=== PATIENT | male | born 1960 | race Caucasian/White ===

== ENCOUNTER 2019-06-19 13:13 | Emergency (ER) | payer OTHER, SELFPAY ==
--- NOTE | ~2019-06-19 | XR_ITS ---
EXAMINATION: XR chest 2V DATE: 06/19/2019 13:44 INDICATION: Cough and fever TECHNIQUE: PA and lateral views of the chest are obtained. COMPARISON: 08/21/2009 FINDINGS: The lungs are free of acute opacities. There is no pleural effusion or pneumothorax. The ca rdiomediastinal silhouette is normal. There is mild thoracic spondylosis. IMPRESSION: 1. No acute cardiopulmonary abnormality. Reviewed, dictated and finalized at location A. ITION NOTCHER
--- NOTE | 2019-06-19 13:25 | ED.GENADULT ---
HPI - General Adult General Chief complaint: Upper Respiratory Infection Stated complaint: COLD Time Seen by Provider: 06/19/19 13:26 Source: patient and RN notes reviewed Mode of arrival: ambulatory Limitations: no limitations History of Present Illness HPI narrative: Pt is a 59 y/o male who is a nonsmoker/nondrinker that presents to the with c/o a productive cough with clear phlegm that started Sunday (3 days ago). Pt states that he had a cold and had augmentin Rx on 06/05/19 by his PCP. He notes that he did not complete his Abx but he was feeling better after taking them. After he started feeling better he had to travel via train for a conference and when he got back home his Sx started all over again. Pt reports that he had a fever of 99.9F and he has been more congested and is wheezing. He also reports lower back pain when he takes a deep breath. He denies precordial chest pain, sputum changes, SOB, calf pain/edema, nor ever using an inhaler or nebulizer in the past. MD complaint: Cough Onset (ago): day(s) (3) Severity: similar to prior episodes Associated symptoms: other (fever, congestion, wheezing, lower back pain) Related Data Home Medications Medication Instructions Recorded Confirmed atorvastatin 40 mg tablet 40 mg PO DAILY 05/29/19 06/19/19 losartan 50 mg tablet 50 mg PO DAILY 05/29/19 06/19/19 metoprolol succinate 100 mg 100 mg PO DAILY 05/29/19 06/19/19 tablet,extended release 24 hr Allergies Allergy/AdvReac Type Severity Reaction Status Date / Time No Known Allergies Allergy Verified 06/19/19 13:36 Review of Systems Review of Systems: Narrative: General/Constitutional: No weight loss. Reports fever 99.9F Eyes: N0: Redness,discharge Ears/Nose/Throat: No: Epistaxis,ear discharge. Reports congestion Respiratory: Denies: Hemoptysis. Reports cough with clear phlegm and wheezing Gastrointestinal: No Vomiting, Bleeding-rectal Skin: No Lumps, eruption Neurologic: No Focal Weakness,Sz Musculoskeletal: Reports lower back pain Hematologic: Denies: Petechiae/Purpura Psychiatric: No: Suicidal ideation All Other Systems: Reviewed and Negative [facility] Past Medical History Medical History Hyperlipidemia Hypertension Insomnia Nasal polyp 2012 Surgical History Surgical History H/O arthroscopic knee surgery Left 2003, 2017 Family History Family History (Updated 05/27/19 @ 12:46 by Alma Delia Stacy, [facility]) Mother Patient's mother is in good health Sibling Patient's sister is in good health Patient's brother is in good health Father MVA (motor vehicle accident) Social History Social History Smoking status: Never smoker Alcohol intake: current Comments At time of signature, agree with nursing past medical, surgical, social and family history. There is no relevant family history pertinent to the presenting complaint Exam Narrative: Exam Narrative: General Appearance: Well appearing, Well nourished EYE: PERRLA, Conjunctiva clear Ears: Auditory canal normal, TM normal Nose: No Rhinorrhea, No Mucousal erythema Mouth/Throat: MM moist, Uvula midline, No Pharyngeal erythema Neck: Supple, No adenopathy Respiratory: No respiratory distress, Breath sounds equal, Scattered wheezing EDWIGE Cardiovascular: RRR, No JVD Musculoskeletal: Non tender, Normal strength Skin: Warm, Dry Neurological: A&O x3, CN II-XII intact Psychiatric: Normal mood, Normal affect Course Vital Signs Vital signs: Vital Signs Temperature 97.7 F 06/19/19 13:26 Pulse Rate 76 06/19/19 13:26 Respiratory Rate 06/19/19 13:26 Blood Pressure 134/83 06/19/19 13:26 Pulse Oximetry 99 06/19/19 13:26 Temperature 97.7 F 06/19/19 13:26 Pulse Rate 76 06/19/19 13:26 Respiratory Rate 06/19/19 13:26 Blood Pressure 134/83 06/19/19 13:26 Puls
[2019-06-19 13:26] VITALS: BP 134/83; PULSE 76; RESP 20; TEMP 36.5; O2SAT 99
== END 2019-06-19 14:25 | disposition home or self-care (01) ==
PROVIDERS: Emergency Provider Emergency Medicine; PCP Internal Medicine
DX: J98.01 Acute bronchospasm (principal); E78.5 Hyperlipidemia, unspecified; I10 Essential (primary) hypertension
CPT/HCPCS: 71046; 87804; 99213; G0463

== ENCOUNTER 2020-02-10 00:39 | Outpatient (CLI) | payer OTHER, SELFPAY ==
[2020-02-10 17:26] LABS: SARS-CoV-2 RNA PCR Negative
== END 2020-02-10 00:40 | disposition home or self-care (01) ==
LOC: ANHCOVIDDT 00:39
PROVIDERS: PCP Internal Medicine; Visit Provider Internal Medicine Gastroenterology
DX: Z01.812 Encounter for preprocedural laboratory examination (principal); Z20.828 Contact with and (suspected) exposure to other viral communicable diseases
CPT/HCPCS: 87635; C9803; U0003

== ENCOUNTER 2020-02-12 00:38 | Day surgery (SDC) | payer OTHER, SELFPAY ==
[2020-02-05 14:47] VITALS: BMI 27.1
--- NOTE | 2020-02-11 13:02 | WPDANESEPPF ---
Anes - Initial Pre Proc Eval Procedure: Operation Date: 02/12/20 09:00 Proposed Procedures p Screening Colonoscopy - Vamsi Vogt MD Date/Time: 02/11/20 13:02 Surgeon: Vamsi Vogt MD Pre Op Diagnosis: screening, hx colon polyps Patient Data Age: 59 Gender: M Height: 1.83 m Weight: 91 kg Allergies Allergy/AdvReac Type Severity Reaction Status Date / Time No Known Allergies Allergy Verified 02/12/20 08:03 Home Medications Medication Instructions Recorded Confirmed Type atorvastatin 40 mg tablet 40 mg PO HS 05/29/19 02/05/20 History losartan 50 mg tablet 50 mg PO DAILY 05/29/19 02/12/20 History metoprolol succinate 100 mg 100 mg PO DAILY 05/29/19 02/12/20 History tablet,extended release 24 hr temazepam 15 mg capsule 15 mg PO DAILY PRN #90 cap 05/29/19 02/05/20 Rx toxlmgsliszu-jnp-zezi-FA-vit K 1 tablet PO DAILY 02/05/20 02/05/20 History [Adults Multivitamin] omega 9-cve-qjf-fish oil [Fish Oil] 1 cap PO DAILY 02/05/20 02/05/20 History Patient hx anesthesia problems: none Family hx anesthesia problems: none PMFSH Past Medical History Medical History (Updated 02/11/20 @ 13:02 by Rojelio Hernandez DO) Hyperlipidemia Hypertension Insomnia Nasal polyp 2012 MARIS (obstructive sleep apnea) CPAP Osteoarthritis Surgical History Surgical History H/O arthroscopic knee surgery Left 2003, 2017 Family History Family History (Updated 05/27/19 @ 12:46 by Alma Delia Stacy [facility]) Mother Patient's mother is in good health Sibling Patient's sister is in good health Patient's brother is in good health Father MVA (motor vehicle accident) Social History Social History Smoking status: Never smoker Alcohol intake: current Drinks per week: 7 Alcohol use details: DRINKS Substance use: never Substance use type: does not use Living arrangements: with family Spiritual care concerns: No Anes - Eval Final PreProcedure Day of Procedure 02/11/20 13:02 Patient weight: overweight Heart: regular rate and rhythm Lungs: clear to auscultation and normal air movement Airway: Mallampati scale class II Neurological: alert and oriented Last oral intake: >/= 8 hours ASA classification: III Emergent: no Anesthetic plan: proceed Anesthesia type and monitoring: general GIVS and standard monitoring Informed Consent: The patient's anesthetic plan and its attendant risks and benefits were discussed with the patient/family/POA. Questions were solicited and answers provided to the satisfaction of the patient/family/POA.
[2020-02-12 08:05] VITALS: BP 136/85; PULSE 61; RESP 18; TEMP 36.4; O2SAT 97; BMI 59.5
[2020-02-12] MEDS: LACTATED RINGERS 1,000 ML 150 ML IV CONT (08:20)
--- NOTE | 2020-02-12 08:37 | P.HP_ITS ---
History of Present Illness History of Present Illness Consent: Risks, benefits, and alternatives have been discussed and questions answered. Patient agrees to proceed with procedure. Chief complaint: screening, hx colon polyps Narrative: Kash Dunn is a 59 year old W male referred for screening colonoscopy secondary to history of colonic polyps. Patient's initial colonoscopy in 2009 adenomatous polyp was removed. Last colonoscopy 5 years ago no polyps were visualized. Patient's brother has a history of malignant polyp. Patient is asymptomatic. [facility]LY [facility], [facility] Past Medical History Medical History Hyperlipidemia Hypertension Insomnia Nasal polyp 2012 MARIS (obstructive sleep apnea) CPAP Osteoarthritis Surgical History Surgical History H/O arthroscopic knee surgery Left 2003, 2017 Family History Family History Mother Patient's mother is in good health Sibling Patient's sister is in good health Patient's brother is in good health Father MVA (motor vehicle accident) Social History Social History Smoking status: Never smoker Alcohol intake: current Drinks per week: 7 Alcohol use details: DRINKS Substance use: never Substance use type: does not use Living arrangements: with family Spiritual care concerns: No Meds Home Medications and Allergies Home Medications Medication Instructions Recorded Confirmed Type atorvastatin 40 mg tablet 40 mg PO HS 05/29/19 02/05/20 History losartan 50 mg tablet 50 mg PO DAILY 05/29/19 02/12/20 History metoprolol succinate 100 mg 100 mg PO DAILY 05/29/19 02/12/20 History tablet,extended release 24 hr temazepam 15 mg capsule 15 mg PO DAILY PRN #90 cap 05/29/19 02/12/20 Rx weuwrfxknpio-ceg-npki-FA-vit K 1 tablet PO DAILY 02/05/20 02/05/20 History [Adults Multivitamin] omega 5-ttk-dib-fish oil [Fish Oil] 1 cap PO DAILY 02/05/20 02/05/20 History Allergies Allergy/AdvReac Type Severity Reaction Status Date / Time No Known Allergies Allergy Verified 02/12/20 08:03 Vital Signs Vital Signs - 24 hr 02/12/20 08:05 Temperature 36.4 C L Pulse Rate 61 Respiratory Rate 18 Blood Pressure 136/85 Pulse Oximetry 97 Exam Const: Orientation/consciousness: patient oriented x3 Resp: Auscultation: clear to auscultation bilaterally Cardio: Rate: regular rate Rhythm: regular rhythm Heart sounds: no murmurs GI: GI Palp: Yes Soft to palpation, No Tenderness to palpation present (GI), Yes No hepatosplenomegaly present and No Palpable mass present Auscultation: normal bowel sounds Neuro: General: patient oriented x3 and no focal motor deficits Extrem: General: no pedal edema Assessment and Plan Additional Plan Screening colonoscopy secondary history of colonic polyps
[2020-02-12 09:37] VITALS: BP 99/67; PULSE 64; RESP 24; O2SAT 98
[2020-02-12 09:43] VITALS: BP 122/83; PULSE 80; RESP 27; O2SAT 99
[2020-02-12 09:53] VITALS: BP 124/87; PULSE 80; RESP 18; O2SAT 100
--- NOTE | 2020-02-12 09:59 | SUR.PHASEII ---
pt to post op area at 0933 and first set of vitals obtained at that time
== END 2020-02-12 10:04 | disposition home or self-care (01) ==
PROVIDERS: PCP Internal Medicine; Visit Provider Internal Medicine Gastroenterology
PROC: 0DJD8ZZ Inspection of Lower Intestinal Tract, Via Natural or Artificial Opening Endoscopic (ICD-10-PCS; CPT 45378; principal; 2020-02-12 09:00)
DX: Z12.11 Encounter for screening for malignant neoplasm of colon (principal); D12.3 Benign neoplasm of transverse colon; K57.30 Diverticulosis of large intestine without perforation or abscess without bleeding; I10 Essential (primary) hypertension; E78.5 Hyperlipidemia, unspecified; G47.33 Obstructive sleep apnea (adult) (pediatric)
CPT/HCPCS: 45385; 88305; J2704; J7120

== ENCOUNTER 2022-12-31 09:20 | Emergency (ER) | payer OTHER, SELFPAY ==
[2022-12-31 09:30] VITALS: BP 120/81; PULSE 80; RESP 16; TEMP 36.4; O2SAT 99
--- NOTE | 2022-12-31 10:01 | ED.GENADULT ---
HPI - General Adult General Chief complaint: Extremity Problem,Nontraumatic Stated complaint: Injured right foot Time Seen by Provider: 12/31/22 10:01 Source: patient Mode of arrival: ambulatory Limitations: no limitations History of Present Illness HPI narrative: 62-year-old male presented for complaint of puncture wound to the bottom of the right foot after stepping on a irais nail 2 days ago. The nail went through his shoe. He was in [place] at the time. Applied iodine to the site. Bleeding was controlled. Denies significant pain, redness, numbness, tingling or weakness of the foot. Has not had tetanus shot since childhood. Related Data Home Medications Medication Instructions Recorded Confirmed atorvastatin 40 mg tablet 40 mg PO HS 05/29/19 12/31/22 metoprolol succinate 100 mg 100 mg PO DAILY 05/29/19 12/31/22 tablet,extended release 24 hr multivit with minerals-iron 18 1 tablet PO DAILY 02/05/20 12/31/22 mg-folic ac 400 mcg-vit K 25 mcg tablet (Adults Multivitamin) omega 7-uiw-oax-fish oil 1,000 mg 1 cap PO DAILY 02/05/20 12/31/22 (120 mg-180 mg) capsule (Fish Oil) amlodipine 10 mg tablet 10 mg PO DAILY 12/31/22 12/31/22 hydrochlorothiazide 12.5 mg tablet 12.5 mg PO DAILY 12/31/22 12/31/22 losartan 100 mg tablet 100 mg PO DAILY 12/31/22 12/31/22 Allergies Allergy/AdvReac Type Severity Reaction Status Date / Time No Known Allergies Allergy Verified 12/31/22 09:25 Review of Systems Review of Systems: CONSTITUTIONAL: Denies body aches, fever, chills EYES: Denies visual changes ENT: Denies rhinorrhea, congestion CARDIOVASCULAR: Denies chest pain, palpitations, or edema. RESPIRATORY: Denies cough or dyspnea. GASTROINTESTINAL: Denies abdominal pain, nausea, vomiting, or diarrhea. SKIN: Denies rash, itching Reports puncture wound to foot MUSCULOSKELETAL: Denies back pain, joint pain, or myalgia. NEUROLOGIC: Denies headache, numbness, tingling, or weakness. All systems reviewed & are unremarkable except as noted in HPI and below PMFSH Past Medical History Medical History (Updated 12/31/22 @ 10:28 by Nessaalexia Cantu APRN) Hyperlipidemia Hypertension Insomnia Nasal polyp 2012 MARIS (obstructive sleep apnea) CPAP Osteoarthritis Surgical History Surgical History H/O arthroscopic knee surgery Left 2017 Family History Family History Mother Patient's mother is in good health Sibling Patient's sister is in good health Patient's brother is in good health Father MVA (motor vehicle accident) Social History Social History Smoking status: Never smoker Alcohol intake: current Drinks per week: 7 Alcohol use details: DRINKS Substance use: never Substance use type: does not use Living arrangements: with family Spiritual care concerns: No Comments At time of signature, I have reviewed and agree with nursing past medical, surgical, social and family history unless otherwise noted. Please see nursing chart for further information. There is no relevant family history pertinent to the presenting complaint Exam Narrative: GENERAL: Well-appearing, and in no acute distress. HEAD: Normocephalic, atraumatic. EYES: PERRLA, conjunctivae clear NECK: Supple. CHEST: Speaks in full sentences. No respiratory distress. HEART: Regular rate and rhythm. Normal and equal peripheral pulses. EXTREMITIES: Right foot plantar surface with puncture site between 1st and 2nd MTP joints c/w reported injury; no FB; no induration, fluctuance, or drainage. Mild tenderness with palpation. Right foot has normal strength and sensation, normal range of motion. No swelling or ecchymosis, No obvious deformity; alignment normal, pulse palpable and equal bilaterally, skin warm, dry, pink. Capillary refill less than 3 seconds. SKIN:
[2022-12-31] MEDS: TETANUS,DIPHTHERIA,AC PERTUSSIS ADULT (0.5 ML) BOOSTRIX IM (10:13)
== END 2022-12-31 10:15 | disposition home or self-care (01) ==
PROVIDERS: Emergency Provider Nurse Practitioner Family
DX: S91.331A Puncture wound without foreign body, right foot, initial encounter (principal); E78.5 Hyperlipidemia, unspecified; I10 Essential (primary) hypertension; Z23 Encounter for immunization; W45.0XXA Nail entering through skin, initial encounter
CPT/HCPCS: 90471; 90715; 99213; G0463

== ENCOUNTER 2023-12-13 19:37 | Emergency (ER) | payer OTHER, SELFPAY ==
[2023-12-13 19:44] VITALS: BP 117/71; PULSE 91; RESP 16; TEMP 36.6; O2SAT 100
== END 2023-12-13 21:53 | disposition left against medical advice (07) ==
LOC: ANHED 20:25
DX: T63.443A Toxic effect of venom of bees, assault, initial encounter (principal)
CPT/HCPCS: 99199

== ENCOUNTER 2025-02-26 00:51 | Day surgery (SDC) | payer MEDICARE, SELFPAY ==
[2025-02-12 15:53] VITALS: BMI 26.3
--- OUTSIDE RECORDS SUMMARY | 2025-02-26 00:54 | XMS_ITS | Clinical Summary ---
Author Organization [facility] Address [address] [place] [address] Care Team Providers Care Tool Crib Manager Name Role Phone Anderson Patrick MD Unavailable [phone] Kirstin Quesada MD Primary Care Provider [phone] Source Comments [facility],non-owned Affiliates and Associated Physician Practices is amultiple site organization consisting of ambulatory clinics and hospital sitesin [place], [place], [place] and [place]. This disclosure is being madepursuant to the Care Everywhere program and may not contain all information available regarding this patient. Last updated 18.[facility] Allergies Active Allergy Reactions Criticality Noted Date Comments Lisinopril Cough 01/20/2019 Medications * Be aware that medications may not be up to date on this document. Alwaysverify current medications with the patient. multivitamin daily (THERAGRAN) tablet Take 1 (one) tablet by mouth daily with food Hold 5 days pre op Active Madison-3 Fatty Acids (OMEGA-3 FISH OIL) 1200 MG Take 1,200 mg by mouth once daily Hold 5 days pre op Active metoprolol succinate XL 24hr (TOPROL XL) 100 MG tablet TAKE 1 TABLET ONCE DAILY 90 tablet 4 0 Active Additional Information Patient taking differently: 100 mg Oral DAILY, Ok to take day of surgery, Reported on 02/13/2023 atorvastatin (LIPITOR) 40 MG tablet TAKE 1 TABLET DAILY 90 tablet 3 0 Active Additional Information Patient taking differently: 40 mg Oral AT BEDTIME, Reported on 02/13/2023 losartan (COZAAR) 50 MG tablet TAKE 1 TABLET ONCE DAILY. THIS TAKES THE PLACE OF LISINOPRIL. 90 tablet 4 0 Active Additional Information Patient taking differently: 50 mg Oral DAILY, Hold day of surgery, Reported on 02/13/2023 amLODIPine (Norvasc) 10 MG tablet Take 1 (one) tablet by mouth once daily Ok to take day of surgery 3 Active Active Problems Patient Care Coordination No te Formatting of this note migh t be different from the original. Computer Designer - Dr. Anderson Patrick Problem Noted Date Diagnosed Date Chest pain 12/11/2014 Overview (12/11/2014): 08/04 ruled out ME -> EKG: SR, minimal nonspecific ST abnormality 08/04 stress nuclear 10:00--88% maximal heart rate, small mild inferolateral attenuation, no ischemia, EF 55% Pure hypercholesterolemia 12/11/2014 Overview (01/22/2020): 01/14 Cholesterol 162 HDL 57 LDL 86 triglyceride 93, AST 20 ALT 20 glucose 100 01/13 Cholesterol 163 HDL 52 LDL 95 triglyceride 80, normal CMP except glucose 104 01/12 Cholesterol 121 HDL 50 LDL 56 triglyceride 74, normal CMP 01/11 Cholesterol 161 HDL 57 LDL 80 triglyceride 118, virtually normal CMP 12/10 Cholesterol 137 HDL 58 LDL 66 triglyceride 65, normal CMP except glucose 103 12/09 Cholesterol 161 HDL 60 LDL 78 triglyceride 115, normal CMP except glucose 100 12/08 Cholesterol 168 HDL 46 LDL 95 triglyceride 136, normal LFTs glucose 104 12/07 Cholesterol 145 HDL 48 LDL 75 triglyceride 108, normal LFTs glucose 107 12/06 Cholesterol 147 HDL 54 LDL 74 triglyceride 95, normal LFTs 05/07 cholesterol 180 HDL 47 LDL 109 triglyceride 118, normal CMP 10/05 cholesterol 149 HDL 47 LDL 83 triglyceride 95, normal CK/LFTs. 10/04 cholesterol 135 HDL 41 LDL 71 triglyceride 113, normal CK/LFTs. 08/04 cholesterol 216 HDL 34 LDL 159 triglyceride 113 Essential hypertension 12/11/2014 Immunizations Immunization Administration Dates Next Due COVID MODERNA BIVALENT 12Y+ 50MCG/0.5ML 02/06/20 22 MODERNA SARS-COV-2 COVID-19 VACCINE 0.25ML 08/26 Family History Relation Name Status Comments Father (Age 35) Car accide nt Mother Alive (Age 88) doing fine Other Half brother wi th coronary disease Paternal Grandfather (Age 75) pa ternal grandfather who had coronary disease Paternal Uncle (Age 59) paternal uncle who of ME at 59 Social History Tobacco Use Types Packs/Day Years Used Date Smoking Tobacco: Never Smokeless Tobacco: Never Tobacco Cessation:Counseling Given: Not Answered Alcohol Use Standard Drinks/Week Comments Yes 5 (1 standard drink = 0.6 oz pur e alcohol) Sex and Gender Information Value Date Recorded Sex Assigned at Not on file Legal 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 Gender Identity Not on file Sexual Orientation Not on file Occupation Industry 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 Start Date Job 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 [employer] Not on file Not on file Not on file Last Filed Vital Signs Vital Sign Reading Time Taken Comments Blood Pressure 140/89 02/27/2023 10:38 AM CDT Pulse 78 02/27/2023 10:20 AM CDT Temperature 36.2 C (97.2 F) 02/27/2023 11:30 AM CDT Respiratory Rate 14 02/27/2023 10:38 AM CDT Oxygen Saturation 94% 02/27/2023 10:38 AM CDT Inhaled Oxygen Concentration - - Weight 86.2 kg (190 lb) 02/27/2023 6:20 AM CDT Height 182.9 cm (6') 02/27/2023 6:20 AM CDT Body Mass Index 25.77 02/27/2023 6:20 AM CDT Plan of Treatment Health Maintenance Due Date Last Done Comments COLOGUARD (AGES 45-75) - COLON CA SCREENING 1959 COLON MONITORING 1959 COLONOSCOPY - COLON CA SCREENING 1959 CT COLONOGRAPHY - COLON CA SCREENING 1959 Colorectal Cancer Screening 1959 FIT - COLON CA SCREENING 1959 FLEX SIG - COLON CA SCREENING 1959 HIV SCREENING 1974 HEPATITIS C SCREENING 04/19/1977 DTAP/TDAP/TD VACCINES (1 - Tdap) 1978 PNEUMOCOCCAL VACCINE 50+ (1 of 1 - PCV) 2009 ZOSTER VACCINE (1 of 2) 2009 SCREENING FOR DIABETES 01/22/2024 1, 01/20/2020, 01/15/2019, Additional history exists DEPRESSION SCREENING 05/28/2024 COVID-19 VACCINE ( season) 2025 02/05/2022, 08/26/2021, 03/30/2021, Additional history exists INFLUENZA VACCINE (#1) 2025 2, 03/03/2021, 03/03/2021, Additional history exists Respiratory Syncytial Virus (RSV) Vaccine Pt: or over 60 yrs (1 - 1-dose 75+ series) 2034 HEPATITIS B VACCINE Aged Out No longe r eligible based on patient's age to complete this topic HIB VACCINE Aged Out No longer eligi ble based on patient's age to complete this topic HPV VACCINE Aged Out No longer eligi ble based on patient's age to complete this topic MENINGOCOCCAL (Group B) VACCINE SHARED DECISION-MAKING Aged Out No longer eligible based on patient's age to complete this topic MENINGOCOCCAL GROUPS A/C/Y/W VACCINE Aged Out No longer eligible based on patient's age to complete this topic Medical Devices Implanted Type Area Radiographer Angiogram Device Identifier Shelf Expiration Date Model / Serial / Lot Cmnt Bone Plc R+Ggnta Arthpl Hvisc Implanted:Qty: 1 on 02/27/2023 by Sajan Melara MD at [facility] Left: Knee Heraeus Kulzer [employer]elen[employer] 06/27/2026 [id number] / / [id number] Cmpnt Fem Kn Lt Evelyn Rl 6 Mck Sys Implanted:Qty: 1 on 02/27/2023 by Sajan Melara MD at [facility] Left: Knee [employer] 12/13/2027 [id number] / / [id number] Bsplt Tib 7 Kn Lt Evelyn Miles Mck Sys Implanted:Qty: 1 on 02/27/2023 by Sajan Melara MD at [facility] Left: Knee [employer] 05/12/2027 [id number] / / [id number] Ins Tib 7 8mm Kn X3 Onlay Uncmp Meng Implanted:Qty: 1 on 02/27/2023 by Sajan Melara MD at [facility] Left: Knee [employer] 02/26/2027 [id number] / / [id number] Procedures Procedure Name Priority Date/Time Associated Diagnosis Comments COMPREHENSIVE METABOLIC PANEL Routine 01/21/2021 2:04 PM CDT Essential hypertension Pure hypercholesterolemia from Last 3 Months or Most Recently Relevant to Health Maintenance Results * (ABNORMAL) COMPREHENSIVE METABOLIC PANEL (01/21/2021 2:04 PM CDT) Glucose 100(H) 65 - 99 mg/dL [facility] INSUR[facility] BILL BUN 16 8 - 27 mg/dL [facility] B[facility] Creatinine 0.79 0.76 - 1.27 mg/dL [facility] INSURANCE BILL eGFR by MDRD 97 >59 mL/min/1.7 3 [facility] INSURANCE BILL eGFR by MDRD 112 >59 mL/min/1.7 3 [facility]URANCE BILL Comment: [facility] currently reports eGFR in compliance with the current recommendations of the National Kidney Foundation. [facility] will update reporting as new guidelines are published from the NKF-ASN Task force. BUN/Creatinine Ratio 20 10 - 24 [facility] INSURANCE BILL Sodium 138 134 - 144 mmol/L [facility] BILL Potassium 4.4 3.5 - 5.2 mmol/L [facility] BILL Chloride 100 96 - 106 mmol/L [facility]UR[facility] BILL CO2 25 20 - 29 mmol/L [facility] BILL Calcium 9.2 8.6 - 10.2 mg/dL [facility]URANCE BILL Protein Total 6.7 6.0 - 8.5 g/dL [facility]URANCE BILL Albumin 4.6 3.8 - 4.8 g/dL [facility]UR[facility] BILL Globulin Total 2.1 1.5 - 4.5 g/dL [facility] INSURANCE BILL Albumin/Globulin Ratio 2.2 1.2 - 2.2 [facility] INSURANCE BILL Bilirubin Total 0.6 0.0 - 1.2 mg/dL [facility] INSURANCE BILL Alkaline Phosphatase 99 48 - 121 IU/L [facility]UR[facility] BILL AST 18 0 - 40 IU/L [facility] INSURANCE BILL ALT 19 0 - 44 IU/L [facility] INSURANCE BILL Comment:FASTING Blood BLOOD SPECIMEN / Unknown 01/21/2021 2:04 PM CDT 01/21/2021 Narrative Resulting Agency Comment [facility] [address] [facility] [id number] Anderson Patrick MD LAB - CHEMISTRY ORDERABLES F inal Result [facility] INSURANCE BILL [address] [place] [id number] from Last 3 Months or Most Recently Relevant to Health Maintenance Insurance * Guarantor: Kash Cottrell Account Type Relation to Patient Date of Phone Billing Address Personal/Family Self [address] [place] [id number] [employer] * Guarantor: Kash Cottrell Account Type Relation to Patient Date of Phone Billing Address Personal/Family Self [address] [place] [phone] [employer] Care Teams Tool Crib Manager Relationship Specialty Start Date End Date Kirstin Quesada MD [address] [place] [address] [address] [place] [phone] PCP - General Internal Medicine 02/13/23 Anderson Patrick MD Cardiovascular Disease 12/11/14
--- OUTSIDE RECORDS SUMMARY | 2025-02-26 00:54 | XMS_ITS | Clinical Summary ---
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 90 Tab 4 12/05/2013 Active metoprolol succinate (TOPROL XL) 100 mg Extended Release 24 hour tabletIndication s:Hypertension,H yperlipidemia,Ch est pain Take 1 Tab by mouth daily. 90 Tab 4 12/05/2013 Active atorvastatin (LIPITOR) 40 mg tabletIndication s:Hypertension,H yperlipidemia,Ch est pain Take 1 Tab by mouth Daily LATE. 90 Tab 4 12/05/2013 Active Active Problems Patient Care Coordination No te Formatting of this note migh t be different from the original. Leasing Director - Dr Anderson Patrick Problem Noted Date Diagnosed Date Chest pain Overview (12/04/2011): 08/04 ruled out AK -> EKG: SR, minimal nonspecific ST abnormality 08/04 stress nuclear 10:00--88% maximal heart rate, small mild inferolateral attenuation, no ischemia, EF 55% Hyperlipidemia Overview (12/05/2013): 12/08 Cholesterol 168 HDL 46 LDL 95 [...] 216 HDL 34 LDL 159 triglyceride 113 Hypertension Resolved Problems Problem Noted Date Diagnosed Date Resolved Date Hepatitis A 10/20/2010 Nasal polyp 10/20/2010 Overview (04/27/2010): 1. status post surgery. Family History Medical History Relation Name Comments Unknown Other Heart Disease Paternal Grandfather Heart Disease Paternal Uncle Relation Name Status Comments Other a half-brother with coronary disease Paternal Grandfather (Age 75) pa ternal grandfather who had coronary disease, after the age of 75. 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 Gender Identity Not on file Sexual Orientation Not on file Last Filed Vital Signs Vital Sign Reading Time Taken Comments Blood Pressure 138/88 12/05/2013 10:59 AM CDT Pulse 54 12/05/2013 10:42 AM CDT Temperature - - Respiratory Rate 16 12/05/2013 10:42 AM CDT Oxygen Saturation 97% 12/05/2013 10:42 AM CDT Inhaled Oxygen Concentration - - Weight 96.6 kg (213 lb) 12/05/2013 10:42 AM CDT Height 181.6 cm (5' 11.5) 12/05/2013 10:42 AM C DT Body Mass Index 29.29 12/05/2013 10:42 AM CDT Plan of Treatment Health Maintenance Due Date Last Done Comments DTAP/TDAP/TD VACCINES (1 - Tdap) 1978 COLORECTAL SCREENING 2004 Colorectal Cancer Screening 2004 FIT-DNA Q 3 years 2004 FIT/FOBT Q 1 year 2004 Flex Sig/CT Colonography Q 5 years 2004 PNEUMOCOCCAL VACCINE 50+ YEARS (1 of 1 - PCV) 04/24/20 09 ZOSTER VACCINE (1 of 2) 2009 INFLUENZA VACCINE (#1) 2024 RSV VACCINE (60+ or ) (1 - 1-dose 75+ series) 2034 Insurance MediWound O OPEN ACCESS [facility] Address: [facility] [address] [place] [address] 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
--- OUTSIDE RECORDS SUMMARY | 2025-02-26 00:54 | XMS_ITS | Clinical Summary ---
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 Gender Identity Not on file Sexual Orientation Not on file Plan of Treatment Health Maintenance Due Date Last Done Comments Colorectal Cancer Screening Colonoscopy (10 Years) 1959 Hepatitis C 1977 DTaP, Tdap and Td Vaccines ( 1 - Tdap) 1978 Pneumococcal Vaccine: 50+ Ye ars (1 of 1 - PCV) 2009 Zoster Vaccines (1 of 2) 2009 COVID-19 Vaccine ( - 2023-2 5 season) 2025 RSV Immunization or 60+ Years (1 - 1-dose 75+ series) 2034 Meningococcal B Vaccine Aged Out No l onger eligible based on patient's age to complete this topic Meningococcal Vaccine Aged Out No alex anne eligible based on patient's age to complete this topic RSV Immunizations Under 20 Months Aged Out No longer eligible based on patient's age to complete this topic
--- OUTSIDE RECORDS SUMMARY | 2025-02-26 00:54 | XMS_ITS | Data Portability ---
Author Organization [facility], Main Office Address [address] [place] [address] Care Team Providers Care Razor Sharpener Name Role Phone BARBARA CALLAWAY Primary Care Provider Unavailab BARBARA Armenta Referring Provider Unavailable WILDER MERINO Revenue Investigator IMAN CORREA Orthopedic Surgeon [phone] MARTHA MILLIGAN Casino Shift Manager EDGAR ABBASI Grain Elevator Motor Starter Assessment Encounter Date Assessment Date Assessment LastModified by Organization Details LastModified Time 08/05/2024 08/05/2024 Patient presente d to office today for their Medicare Annual Wellness Visit. FLP results reviewed w/ pt. Will send to Dr. Milligan. Education was provided on healthy nutrition, including a diet rich in fruits and vegetables, minimizing simple carbohydrates, salt, and saturated fats. Encouraged regular cardiovascular exercise such as walking at least 30 minutes daily, 5 times per week. Emphasized preventive health measures and educated pt on fall prevention and community-based lifestyle interventions to help reduce health risks and promote healthy living. Not available 08/05/2024 13:21:25 02/04/2025 02/04/2025 Pt presents for f/u for HTN, HLD and weight f/u. FLP reviewed w/ pt - will send to Dr. Milligan. Not available 02/04/2025 12:56:09 Plan of Treatment Reminders Order Date Submit Date Provider Last Modified By Organization Details Last Modified Time Details Appointments Medicare Annual(90 ) 2025 11:00A M BARBARA CALLAWAY MD Not available Not available Not available Lab lipid panel, serum 202404 [id number] [facility], [address] [facility] [address], [place], [address], 01/16/2025 08:10:34 Referral None recorded. Procedures None recorded. Surgeries None recorded. Imaging None recorded. Medication Orders None recorded. Patient TargetsNo targets recorded. Patient Instructions Encounter Date Encounter Id Patient Instructions Last Modified By Organization Details Last Modified Time 08/05/2024 [id number] Discussed and explained advance directives such as standard forms to the patient. Face to face discussion lasted for a duration of 10 minutes. Not available 08/05/2024 13:21:37 Reason for Referral None Reported. Results Created Date Observation Date Name Description Value Unit Range Abnormal Flag Note LastModifiedBy Organization Detail LastModifiedTime 08/02/1908/02/2024 LIPID PANEL cholesterol, total 142 mg/dL 100-19 9 normal Not Available [facility] ([facility]) [address] [place], [address], 08/02/2024 08:11:54 08/02/19 25 08/02/2024 LIPID PANEL triglyceride s 66 mg/dL 0-149 normal Not Available [facility] ([facility]) [address] [place], [address], 08/02/2024 08:11:54 08/02/19 25 08/02/2024 LIPID PANEL HDL cholesterol 54 mg/dL >39 normal Not Available [facility] ([facility]) [address] [place], [address], 08/02/2024 08:11:54 08/02/19 25 08/02/2024 LIPID PANEL VLDL cholesterol marisol 13 mg/dL 5-40 Not Available [facility] ([facility]) [address] [place], [address], 08/02/2024 08:11:54 08/02/19 25 08/02/2024 LIPID PANEL LDL chol calc ([facility]) 75 mg/dL 0-99 Not Available [facility] ([facility]) [address] [facility], [place], [address], 08/02/2024 08:11:54 08/02/1908/02/2024 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 Not Available [facility] ([facility]) [address] [facility], [place], [address], 08/02/2024 08:11:54 10/03/1910/03/2024 MEASL ES/MU MPS/R UBELL A IMMUN ITY rubella antibodies, IgG 19.20 index immune >0.99 Non-i mmune <0.90 Equiv ocal 0.90 - 0.99 Immun e >0.99 Not Available [facility] ([facility]) [address] [facility], [place], [address], 10/03/2024 08:25:48 10/03/1910/03/2024 MEASL ES/MU MPS/R UBELL A IMMUN ITY measles antibodies, IgG >300.0 AU/mL immune >16.4 Negat annamarie <13.5 Equiv ocal 13.5 - 16.4 Posit annamarie >16.4 Prese nce of antib odies to Rube[place] la is presu mptiv e evide nce of immun ity excep t when acute infec tion is suspe cted. Not Available [facility] ([facility]) [address] [facility], [place], [address], 10/03/2024 08:25:48 10/03/1910/03/2024 MEASL ES/MU MPS/R UBELL A IMMUN ITY mumps abs, IgG >300.0 AU/mL immune >10.9 Negat annamarie <9.0 Equiv ocal 9.0 - 10.9 Posit annamarie >10.9 A posit annamarie resul t gener ally indic ates past expos ure to Mumps virus or previ ous vacci natio n. Not Available [facility] ([facility]) [address] [facility], [place], [address], 10/03/2024 08:25:48 01/16/20 25 01/16/2025 LIPID PANEL cholesterol, total 163 mg/dL 100-19 9 normal Not Available [facility] ([facility]) [address] [facility], [place], [address], 01/16/2025 08:10:33 01/16/20 25 01/16/2025 LIPID PANEL triglyceride s 89 mg/dL 0-149 normal Not Available [facility] ([facility]) [address] [facility], [place], [address], 01/16/2025 08:10:33 01/16/20 25 01/16/2025 LIPID PANEL HDL cholesterol 64 mg/dL >39 normal Not Available [facility] ([facility]) [address] [facility], [place], [address], 01/16/2025 08:10:33 01/16/20 25 01/16/2025 LIPID PANEL VLDL cholesterol marisol 16 mg/dL 5-40 Not Available [facility] ([facility]) [address] [facility], [place], [address], 01/16/2025 08:10:33 01/16/20 25 01/16/2025 LIPID PANEL LDL chol calc ([facility]) 83 mg/dL 0-99 Not Available [facility] ([facility]) [address] [place], [address], 01/16/2025 08:10:33 01/16/20 25 01/16/2025 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 9-Vitami n D deficien cy, unspecif ied Not Available [facility] 4 15:33:04 [place] ht 022075449 Active 2022 E66.3-OV ERWEIGHT Not Available [facility] 4 15:33:04 Prediabe nicko 923282303 Completed 202205/03/2023 R73.03-P rediabet es Not Available [facility] 4 15:33:04 Mixed hyperlip idemia 978483957 Active 2022 E78.2-AR XED HYPERLIP IDEMIA BARBARA CALLAWAY MD [address], [place], [address] , [facility] 5 16:03:13 Screenin g status 536729413 Active 2022 Z12.5-EN COUNTER FOR SCREENIN G FOR MALIGNAN T NEOPLASM OF PROSTATE Z13.89- ENCOUNTE R FOR SCREENIN G FOR OTHER DISORDER Not Available [facility] 4 15:33:05 Body mass index 25-29 - overweig ht 651403445 Active 2022 BMI 25.0-25. 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 Procedures Surgical History Date Name Laterality Status Provider Name and Address Organization Details Recorded Time arthroplasty of knee completed Sobia Jose [facility] 08/05/2024 12:17:35 arthroplasty of knee completed Sobia Jose [facility] 08/05/2024 12:17:42 hernia repair completed BARBARA CALLAWAY MD [address], [place], [address], [facility] 08/05/2024 13:01:49 vasectomy completed Sobia Nuha [facility] 08/05/2024 12:18:05 laser assisted in situ keratomileusis completed Sobia Nuha [facility] 08/05/2024 12:18:14 Imaging Results None recorded. Procedure Notes None recorded. Medical Equipment None Reported. Allergies Allergen ID Allergen Name Allergen Category Reaction Reaction Severity Criticality Documentation Date Start Date Code Code System Note Provider Name and Address Organization Details Recorded Time 421 lisinopri l medicatio n Not available Not available Not available 03/25/2024 84006 RxNorm cough , sever ity [facility] 12:11:02 422 Anaphylax is Bee Sting medicatio n Not available Not available Not available 03/25/2024 hives and swell ing Sobia menjivar [facility] 12:10:53 Medications Name Sig Start Date Stop Date Status Note LastModified by Organization Details LastModified Time amoxicillin 500 mg capsule TAKE ONE CAPSULE BY MOUTH TWICE DAILY FOR 10 DAYS 07/30 completed Not Available Not Available Not Available atorvastati n 80 mg tablet TAKE 1 TABLET BY MOUTH AT BEDTIME active Not Available Not Available No t Available metoprolol succinate ER 100 mg tablet,exte nded release 24 hr TAKE 1 TABLET ONCE DAILY active Not Available Not Available No t Available cephalexin HCl 500 mg tablet 05/13 completed Not Available Not Available Not Available oxycodone-a cetaminophe n 5 mg-325 mg tablet 07/30 completed Not Available Not Available Not Available alprazolam 0.5 mg tablet TAKE 1 TABLET BY MOUTH AT BEDTIME FOR ANXIETY active Not Available Not Available No t Available imiquimod 5 % topical cream packet APPLY THIN LAYER TO AFFECTED AREA AT BED TIME SUNDAY- FOR 6 WEEKS, WASH OFF IN THE AM 07/30 completed Not Available Not Available Not Available amlodipine 10 mg tablet TAKE 1 TABLET DAILY active Not Available Not Available No t Available epinephrine 0.3 mg/0.3 mL injection, auto-inject or INJECT 0.3 ML INTRAMUSC ULARLY ONCE & MAY REPEAT ONCE 2-LEATHA FOR EACH LOCATION- HOME/KEYS Y/OTHER active Not Available Not Available No t Available losartan 100 mg tablet TAKE 1 TABLET BY MOUTH EVERY DAY active Not Available Not Available No t Available diazepam 5 mg tablet 07/31 completed Not Available Not Available Not Available cholecalcif sushila (vitamin D3) 25 mcg (1,000 unit) capsule Take 1 capsule every day by oral route. 2022 active Not Available Not Available Not Avai lable cyclobenzap rine 5 mg tablet TAKE 1-2 TABLETS TWICE A DAY NEEDED FOR MUSCLE SPASMS active Not Available Not Available No t Available hydrochloro thiazide 12.5 mg tablet TAKE 1 TABLET BY MOUTH EVERY DAY 07/30 completed Not Available Not Available Not Available fish oil-omega-3 -vit C-vit E 1 po qd active Not Available Not Available Not Available Multi Vitamin 1 po qd active Not Available Not Available Not Available Vitals Date Recorded Body height Body temperature Heart rate Oxygen saturation Oxygen saturation in Arterial blood by Pulse oximetry Body mass index (BMI) Body weight Respiratory rate Systolic And Diastolic Provider Name and Address Organization Details Last Updated DateTime 5 182.88 cm 97.7 [degF] 61 /min 98 % 98 % 26.7 kg/m2 96652.7 g 10 /min 118/80 mm[Hg] Sobia [facility] 12:06:38 Date Recorded Body height Body temperature Heart rate Oxygen saturation Oxygen saturation in Arterial blood by Pulse oximetry Body mass index (BMI) Body weight Respiratory rate Systolic And Diastolic Provider Name and Address Organization Details Last Updated DateTime 5 182.88 cm 98.2 [degF] 62 /min 99 % 99 % 26.8 kg/m2 18078.8 5 g 14 /min 116/72 mm[Hg] [facility] 11:53:31 Social History Question Answer Notes LastModified by Organizat ion Details LastModified Time Tobacco Smoking Status Never Smoker Not Available [facility] 03/25/2024 15:37:05 Do You Have An Advance Directive? Yes Information not available 08/05/2024 What Is Your Level Of Caffeine Consumption? Occasional Information not available 08/05/2024 What Type Of Diet Are You Following? REGULAR [email or web address] Information not available 02/04/2025 What Is The Highest Grade Or Level Of School You Have Completed Or The Highest Degree You Have Received? [id number] [email or web address] Information not available 08/05/2024 Are There Any Guns Present In Your Home? Yes [email or web address] Information not available 08/05/2024 What Is Your Relationship Status? [email or web address] Information not available 08/05/2024 Do You Use Your Seat Belt Or Car Seat Routinely? Yes [email or web address] Information not available 08/05/2024 Are You Sexually Active? Yes [email or web address] Information not available 08/05/2024 Do You Have Smoke And Carbon Monoxide Detectors In Your Home? Yes Information not available 08/05/2024 Are You Passively Exposed To Smoke? No [email or web address] Information no t available 08/05/2024 Are There Any Smokers In Your House? No [email or web address] Information not available 08/05/2024 Do You Use Sunscreen Routinely? Yes [email or web address] Information not available 08/05/2024 Sex: Male Functional Status Question Answer Note LastModified by Organization Details LastModified Time Do you use any illicit or recreational drugs? Yes [email or web address] Information not available 08/05/2024 What is your level of alcohol consumption? Occasional [email or web address] Information not available 08/05/2024 Have you been exposed to heavy metals? No [email or web address] Information not available 08/05/2024 Have you been exposed to chemicals or toxins? No [email or web address] Information not available 08/05/2024 Are you able to care for yourself independently? Yes [email or web address] Information not available 08/05/2024 What type of noise exposure are you exposed to? noExposureToExcessiveNoise [email or web address] Infor mation not available 08/05/2024 Mental Status Question Answer Note LastModified by Organization D etails LastModified Time Do you feel stressed (tense, restless, nervous, or anxious, or unable to sleep at night)? [id number] [email or web address] Information not available 08/05/2024 Family History Relationship Description Onset Age of this Age Resolved Age Notes LastModified by Organization Details LastModified Time Brother Harmful pattern of use of alcohol 40 [email or web address] Not available 2024 12:10:22 Brother Malignant neoplasm of prostate 75 Not available 2024 12:00:09 Brother Malignant neoplasm of liver 75 Not available 2024 12:00:14 Brother Harmful pattern of substance use [email or web address] Not available 03/2025 12:30:57 Mother History of thyroidectom y Not available 03/2025 12:31:25 Son Anxiety [email or web address] Not availa ble 08/05/2024 12:31:48 Daughter Depressive disorder [email or web address] Not available 03/2025 12:32:01 Medical History Condition Response Coronary Artery Disease N Other N Gout N Kidney Stones N Blood Diseases N Hyperthyroidism N Breast Cancer N Blood Transfusion N Vestibular dysfunction N Hypothyroidism N Lung Disease N Depression N COPD N Defects or Inherited Disease N Developmental or Behavioral Disorders N Breast Problem N Difficulty Swallowing N Somatic Symptom Disorder N Anesthesia Complications N Meniere's disease N Muscle, Joint, or Bone Problems Y Vision or Eye Problems N Arthritis N Polyps Y Infertility N Interstitial Cystitis N Cancer N Varicosities N Stroke N ADHD N Endometriosis N Bladder or Kidney Problems N High Cholesterol Y Liver Disease N Fibromyalgia N Headaches N Irritable Bowel Syndrome N Kidney Disease N Allergies/Hayfever N Heart Problems N Anxiety Y Ear or Hearing Problems Y Hospitalizations N Thyroid Problems N GI Problems N Skin Problems Y Eating Disorder N Anemia N Constipation N Mental Illness N Ovarian Cancer N Diabetes N Bedwetting N Bleeding Disorder N Seizures/Epilepsy N Tuberculosis N Eczema N Chronic Pain N Diverticulitis N Abuse/Domestic Violence N Asthma N Cerebrovascular Disease N Autism N Reflux/GERD N Peptic ulcer N Hepatitis N Heart Disease N Pulmonary Embolism N Pre-Eclampsia N Hypertension Y Chronic Ear Infections N Osteoporosis N Chicken Pox Y Thrombophilias N COVID Y Past Encounters Encounter ID Performer Location Encounter Start Date Encounter Closed Date Diagnosis/Indication Diagnosis SNOMED-CT Code Diagnosis ICD10 Code Diagnosis IMO Codes Diagnosis Note [id number] BARBARA CALLAWAY MD Main Office [address] [place] [address] 08/05/2024 11:49:24 11/15/2024 04:06:22 Screening for malignant neoplasm of colon 848116739 Z12.11 General ex amination of patient 784933682 Z00.00 78056029 Essential hypertension 32699190 I10 Mixed hyperlipidemia 267 541584 E78.2 28912 Vitamin D deficiency 347 24457 E55.9 Depression screening 171 177026 Z13.31 55244 Negative Overweight in adulthood with body mass index of 25 or more but less than 30 043075032 E66.3 Z68.26 4675131691 Hearing lo ss of left ear 490447391 H91.8X2 [id number] BARBAAR CALLAWAY MD Main Office [address] [facility] [place] [employer] [phone] 02/04/2025 11:48:50 02/04/2025 12:57:10 Essential hypertension 94273022 I10 Mixed hyperlipidemia 267 910525 E78.2 60729 ASCVD 8% - on statin Anxiety 01400691 F41.9 Overweight 938601271 E66 .3 Body mass index 25-29 - overweight 138501775 Z68.25 InBody reviewed w/ ptWeight about the same but pt has gained muscle, loss fat, fat percentage down, visceral fat down from 13 to 12! Vitamin D deficiency 347 16269 E55.9 Insomnia 971949383 G47.0 0 Xan[place] prnPt in [place] Health Concerns Section Related Observation LastModified by Organization Detai ls LastModified Time None Recorded Concern Status LastModified by Organization Details LastModified Time None Recorded Advance Directives Directive Y: Payers Insurance Date Sequence Insurance Name Policy Number Policy Linn Covered Member ID Linn Member ID Guarantor Name 02/04/2025 1 [employer] - UNICARE Kash Dunn [id number] 02/04/2025 2 [employer] (MEDICARE REPLACEMENT/A DVANTAGE - PPO) [id number] Kash Dunn [id number] 02/04/2025 3 MEDICARE [place]: [place] Kash Dunn [id number] 08/05/2024 1 *SELF PAY* Notes Date Note Type Note Provider Name and Address Organization Details Recorded Time 08/05/2024 text/html Medicare Annual Wellness VisitReported by PatientSocial/Behaviora l HistoryFor diet and nutrition, patient reportsfollows recommended diet. For fracture risk, patient reportsno history of fractures,no recent explained fracture,no sudden unexplained fractures, andno previous musculoskeletal injuries. For physical activity, patient reportsexercises on a regular basis,recent increase in physical activity, andgood physical condition.Mental Status:For depression risk, patient reportsnever feels sad, empty, or tearful,no loss of interest in activities,no significant changes in weight,no sleep disturbances or insomnia,no agitation,no loss of energy,no feelings of worthlessness or guilt,no thoughts of suicide,no history of depression, andno history of mood disorders. For orientation, patient reportsoriented to person, place, time. For concentration and memory, patient reportsno decreased concentrating ability,no memory lapses or loss, anddoes not forget words. For speech/motor difficulties, patient reportsno speech difficulties,no difficulty expressing formulated concepts,no difficulty with fine manipulative tasks,no difficulty writing/copying,no slowed reaction time, anddoes not knock things over when trying to pick them up.Functional AbilityFor hearing, patient reportsloss of hearing leftanddifficulty hearing over background noise. For vision, patient reportsno vision problems. For activities of daily living, patient reportsable to bathe with limited or no assistance,able to control urination and bowels,able to dress with limited or no assistance,able to feed self with limited or no assistance,able to get out of chair or bed with limited or no assistance,able to groom with limited or no assistance, andable to toilet with limited or no assistance. For instrumental activities of daily living, patient reportsable to do house work with limited or no assistance,able to grocery shop with limited or no assistance,able to manage medications with limited or no assistance,able to manage money with limited or no assistance,able to prepare meals with limited or no assistance,able to use the phone with limited or no assistance, andable to manage transportation with limited or no assistance. For falls risk assessment, patient reportsno frequent falls while walking,no fall in the past year,no fall since last visit, andno dizziness/vertigo. For home safety, patient reportsno unsafe jose guadalupe hazards,no unsafe stairs,no unsafe gas appliances,working smoke/co detectors,wears protective head gear for biking/high velocity,use of seatbelts,no high risk sexual behavior,no vision or hearing loss while driving,no firearms,has hand bars in the bathroom/shower, andgood lighting in the home.ROS as noted in the HPI Nutrition: Pt eating to eat well. Trying to eat better. Hydration: Doing well with water. When he doesn't work out, he doesn't drink much. Sleep: sleeping well overall. Doing much better with the sleep better. Xanax has been helping and he just takes it very sparingly. Only taking intermittently. Stress: Pt doing well with mcc. He is keeping busy. Dentist: Last dental exam was 2 mths - everything was goodEye exam: Within the past 4 mths and still wearing the same glasses rx. Physical activity: Pt hasn't been as active. Not doing the [employer]. PSA - UTD Colonoscopy - due for colonoscopy this year - 2024Denies any chest pain, SOB, n/v/d. Recently saw Dr. Milligan and will f/u w/ him in 1 year. BARBARA CALLAWAY MD [address], [place], [address], [place] [facility] 08/05/2024 13:22:15 02/04/2025 text/html ROS as noted in the HPI HTN - Pt doing well. No issues. HLD - Pt currently on statin. FLP UTD. Nutrition: Pt eating to eat well. Trying to eat better. Doing a good job with protein. Hydration: Doing well with water. Gets about 60oz. Sleep: sleeping well overall. Doing much better with the sleep better. Xanax has been helping and he just takes it very sparingly. Only taking intermittently. Stress: Pt doing well with mcc. He is keeping busy. Physical activity: He isn't on a routine. He is trying to get on a routine. Colonoscopy - scheduled for 02/26/25 - [facility] in [facility] any chest pain, SOB, n/v/d. Has appt with Dr. Milligan. BARBARA CALLAWAY MD [address], [place], [address], [facility] 02/04/2025 12:56:16
[2025-02-26 11:08] VITALS: BP 126/80; PULSE 76; RESP 16; TEMP 36.5; O2SAT 99; BMI 26.2
[2025-02-26] MEDS: LACTATED RINGERS 1,000 ML 150 ML IV CONT (11:16)
--- NOTE | 2025-02-26 12:12 | WPDANESEPPF ---
Anes - Initial Pre Proc Eval Procedure: Operation Date: 02/26/25 12:30 Proposed Procedures p Screening Colonoscopy - Naseem Sims MD Date/Time: 02/26/25 12:12 Surgeon: Naseem Sims MD Pre Op Diagnosis: Personal history of colon polyps, unspecified Patient Data Age: 64 Gender: M Height: 1.83 m Weight: 87.7 kg Last Vital Signs Temp 36.5 C 02/26/25 11:08 Pulse 76 02/26/25 11:08 Resp 16 02/26/25 11:08 BP 126/80 02/26/25 11:08 Pulse Ox 99 02/26/25 11:08 O2 Del Method Room Air 02/26/25 11:08 Allergies Allergy/AdvReac Type Severity Reaction Status Date / Time lisinopril AdvReac Intermediate coughing Verified 02/26/25 11:08 Home Medications ?Medication ?Instructions ?Recorded ?Confirmed ?Type atorvastatin 40 mg tablet 80 mg PO HS 05/29/19 02/26/25 History metoprolol succinate 100 mg 100 mg PO DAILY 05/29/19 02/26/25 History tablet,extended release 24 hr temazepam 15 mg capsule 15 mg PO DAILY PRN sleep #90 caps 05/29/19 02/12/25 Rx multivit with minerals-iron 18 1 tablet PO DAILY 02/05/20 02/26/25 History mg-folic ac 400 mcg-vit K 25 mcg tablet (Adults Multivitamin) omega 8-dcj-ggs-fish oil 1,000 mg 1 cap PO BID 02/05/20 02/26/25 History (120 mg-180 mg) capsule (Fish Oil) amlodipine 10 mg tablet 10 mg PO DAILY 12/31/22 02/26/25 History losartan 100 mg tablet 100 mg PO DAILY 12/31/22 02/26/25 History cholecalciferol (vitamin D3) 50 2,000 unit PO DAILY 02/12/25 02/26/25 History mcg (2,000 unit) tablet (D3 DOTS) Patient hx anesthesia problems: none Family hx anesthesia problems: none Results Review: All pre-operative results and documents have been reviewed as part of the pre-operative evaluation. COUNT INCLUDES THE [facility] Past Medical History Medical History Osteoarthritis MARIS (obstructive sleep apnea) CPAP Nasal polyp 2013 Hypertension Hyperlipidemia Insomnia Surgical History Surgical History H/O arthroscopic knee surgery Left 2003, 2017 Family History Family History Mother Patient's mother is in good health Sibling Patient's sister is in good health Patient's brother is in good health Father MVA (motor vehicle accident) Social History Social History Smoking status: Never smoker Alcohol intake: current Drinks per week: 21 Alcohol use details: Social Substance use: never Substance use type: does not use Living arrangements: with family Spiritual care concerns: No Anes - Eval Final PreProcedure Day of Procedure 02/26/25 12:12 Patient weight: normal Heart: regular rate and rhythm Lungs: normal air movement Airway: Mallampati scale class 1 Neurological: alert and oriented Last oral intake: >/= 8 hours ASA classification: II Emergent: yes Anesthetic plan: proceed Anesthesia type and monitoring: general GIVS and standard monitoring Results Review: All pre-operative results and documents have been reviewed as part of the pre-operative evaluation. Informed Consent: The patient's anesthetic plan and its attendant risks and benefits were discussed with the patient/family/POA. Questions were solicited and answers provided to the satisfaction of the patient/family/POA.
--- NOTE | 2025-02-26 12:18 | PM.IMHP ---
H&P: HPI History of Present Illness Date/Time: 02/26/25 12:18 Chief Complaint: History of colon polyps Narrative: The patient has a history of colonic polyps, the last colonoscopy was 5 years ago. Review of Systems Review of Systems: All systems reviewed & are unremarkable except as noted in HPI and below PMFSH Past Medical History Medical History (Updated 02/26/25 @ 12:19 by Naseem Sims MD) Osteoarthritis MARIS (obstructive sleep apnea) CPAP Nasal polyp 2012 Hypertension Hyperlipidemia Insomnia Surgical History Surgical History H/O arthroscopic knee surgery Left 2003, 2017 Family History Family History Mother Patient's mother is in good health Sibling Patient's sister is in good health Patient's brother is in good health Father MVA (motor vehicle accident) Social History Social History Smoking status: Never smoker Alcohol intake: current Drinks per week: 21 Alcohol use details: Social Substance use: never Substance use type: does not use Living arrangements: with family Spiritual care concerns: No Meds Home Medications and Allergies Home Medications ?Medication ?Instructions ?Recorded ?Confirmed ?Type atorvastatin 40 mg tablet 80 mg PO HS 05/29/19 02/26/25 History metoprolol succinate 100 mg 100 mg PO DAILY 05/29/19 02/26/25 History tablet,extended release 24 hr temazepam 15 mg capsule 15 mg PO DAILY PRN sleep #90 caps 05/29/19 02/12/25 Rx multivit with minerals-iron 18 1 tablet PO DAILY 02/05/20 02/26/25 History mg-folic ac 400 mcg-vit K 25 mcg tablet (Adults Multivitamin) omega 1-tne-rfm-fish oil 1,000 mg 1 cap PO BID 02/05/20 02/26/25 History (120 mg-180 mg) capsule (Fish Oil) amlodipine 10 mg tablet 10 mg PO DAILY 12/31/22 02/26/25 History losartan 100 mg tablet 100 mg PO DAILY 12/31/22 02/26/25 History cholecalciferol (vitamin D3) 50 2,000 unit PO DAILY 02/12/25 02/26/25 History mcg (2,000 unit) tablet (D3 DOTS) Allergies Allergy/AdvReac Type Severity Reaction Status Date / Time lisinopril AdvReac Intermediate coughing Verified 02/26/25 11:08 Vital Signs Vital Signs - 24 hr 02/26/25 11:08 Temperature 97.7 F Pulse Rate 76 Respiratory Rate 16 Blood Pressure 126/80 Pulse Oximetry 99 Oxygen Delivery Room Air Exam Const: General: cooperative and healthy appearing Resp: Effort & Inspection: normal respiratory effort and able to speak in complete sentences Auscultation: clear to auscultation bilaterally Cardio: Rate: regular rate Rhythm: regular rhythm GI: Inspection: normal to inspection GI Palp: No No hepatosplenomegaly present Auscultation: normal bowel sounds Rectal Exam: deferred Skin: General skin exam: normal color Psych: Appearance: grossly normal Mental Status: mental status grossly normal Assessment and Plan Assessment and plan (1) History of colonic polyps: Code(s): Z86.0100 - Personal history of colon polyps, unspecified Status: Acute Assessment and Plan: The patient is deemed a good candidate for the procedure. Consent signed. Will proceed.
--- NOTE | 2025-02-26 12:35 | S_PTH ---
PATIENT: Kash Dunn LOC: [facility] U#:[id number] AGE/SX: 64/M ROOM: RE02/26/[address]: Naseem Sims MD : 1960 BED: DIS: 02/26/2025 SPEC #: [id number] RECD: 02/26/25 13:14 STATUS: DIEGO REShadi #: [id number] TAMANNA: 02/26/25 12:[address]: Naseem Sims DEPT: [facility] Surgical RECD BY: Sakina Escalante MLT, ([facility]) Tissues: A - Colon Polypectomy Procedures: Hematoxylin and Eosin Stain Gross and Microscopic Level 4
[2025-02-26 12:38] VITALS: BP 100/72; PULSE 80; RESP 16; O2SAT 100
[2025-02-26 12:48] VITALS: BP 114/77; PULSE 86; RESP 23; O2SAT 100
[2025-02-26 12:58] VITALS: BP 130/90; PULSE 64; RESP 21; O2SAT 100
== END 2025-02-26 13:04 | disposition home or self-care (01) ==
PROVIDERS: Visit Provider Internal Medicine Gastroenterology
PROC: 0DJD8ZZ Inspection of Lower Intestinal Tract, Via Natural or Artificial Opening Endoscopic (ICD-10-PCS; CPT 45378; principal; 2025-02-26 12:30)
DX: Z12.11 Encounter for screening for malignant neoplasm of colon (principal); D12.3 Benign neoplasm of transverse colon; K57.30 Diverticulosis of large intestine without perforation or abscess without bleeding; K64.8 Other hemorrhoids
CPT/HCPCS: 45385; 88305; J2003; J2704; J7120